=== PATIENT | female | born 1950 | race Caucasian/White ===

== ENCOUNTER 2021-05-17 21:22 | Inpatient (IN) | payer MEDICARE, BC ==
[~2021-05-17] VITALS: Ht 172.7 cm; Wt 63.5 kg
--- NOTE | 2021-05-17 21:45 | NUR ---
GPS ADMISSION NOTE ADMITTED THIS 70 Y/O FEMALE PT DIRECT ADMIT FROM [facility] ED. ADMITTED TO GPS ON 5150 HOLD DTS AND SUICIDE ATTEMPT BY OVERDOSE. UPON [id number] ASSESSMENT, PT IS A/O X3, DISHEVELED, PARANOID, DEPRESSED, WITH FLAT AFFECT. PT IS EASILY AGITATED. AMBULATORY WITH STEADY GAIT. SKIN IS INTACT. PT DENIES SI/HI AT THIS TIME. BOTH MD AWARE AND NOTIFIED OF THE ADMISSION. BELONGINGS AND CONTRABAND WERE DONE. NURSING ASSESSMENT DONE. PT'S RIGHTS DISCUSSED BY RENEE PADRON. PROVIDED PT WITH HANDBOOK AND MEDICATIONS GUIDE. ENVIRONMENTAL SAFETY CHECK DONE. ENCOURAGED PT TO VERBALIZE ANY FEELINGS OF CONCERN TO STAFF. ORIENTED PT TO UNIT POLICY. NO ACUTE DISTRESS NOTED. VSS. PT DENIES ANY PAIN OR DISCOMFORT AT THIS TIME. BED IN LOWEST LOCKED POSITION, HOB ELEVATED, SIDE RAILS UP X2. CALL LIGHT AND TABLE WITHIN REACH. WILL MONITOR Q15 MINS FOR SAFETY AND BEHAVIOR.
[2021-05-17] MEDS ORDERED: BLOOD SUGAR DIAGNOSTIC 1 EACH STRIP IN ONE (22:00)
[2021-05-17] MEDS ORDERED: LORAZEPAM 0.5 MG TABLET PO PRN (22:00)
[2021-05-17] MEDS ORDERED: MAGNESIUM HYDROXIDE 30 ML UDC PO PRN (22:00)
[2021-05-17] MEDS ORDERED: ACETAMINOPHEN 325 MG TABLET PO PRN (22:00)
[2021-05-17] MEDS ORDERED: BENA5TAB5 PO (22:26)
[2021-05-17] MEDS ORDERED: HYDR-3972 PO (22:26)
[2021-05-17] MEDS ORDERED: ALBU18HF2 IH (22:26)
[2021-05-17] MEDS ORDERED: BUPR150T10 PO (22:26)
[2021-05-17] MEDS ORDERED: VENL75TA4 PO (22:26)
[2021-05-17] MEDS ORDERED: AMLO-212 PO (22:26)
[2021-05-17] MEDS ORDERED: BUDE10.2 IH (22:26)
[2021-05-17] MEDS ORDERED: FLUT1BLS13 IH (22:26)
[2021-05-17] MEDS ORDERED: FLUT1DIS3 IH (22:26)
--- NOTE | 2021-05-17 22:42 | NUR ---
RN NOTE PT REFUSED ACCUCHECK AT THIS TIME. EDUCATED PT ON RISKS AND BENEFITS OF REFUSING ACCUCHEK. PT VERBALIZED UNDERSTANDING. WILL CONTINUE TO MONITOR PT CLOSELY.
--- NOTE | 2021-05-17 23:13 | NUR ---
RN NOTE: ANXIETY/AGITATION PT C/O FEELING ANXIOUS AND APPEARED AGITATED. PER PT REQUEST, ADMINISTERED ATIVAN 1MG PO PRN PER ORDER. WILL CONTINUE TO MONITOR PT CLOSELY.
[2021-05-17] MEDS: LORAZEPAM 1 MG TABLET PO PRN (23:25)
[2021-05-18 03:00] VITALS: BP 137/78
[2021-05-18 06:37] LABS: BASOPHILS # (AUTO) 0.1 K/uL (0.0-0.2); EOSINOPHILS % (AUTO) 2.5 % (0.0-6.0); HEMATOCRIT 44 % (33-45); HEMOGLOBIN 14.8 g/dL (11.5-14.8); LYMPHOCYTES # (AUTO) 1.6 K/uL (0.8-4.8); LYMPHOCYTES % (AUTO) 14.8 % (20.0-44.0); MEAN CORPUSCULAR HGB CONC 34 g/dl (31.0-36.0); MEAN CORPUSCULAR VOLUME 92 fL (82-100); MONOCYTES % (AUTO) 9.3 % (2.0-12.0); NEUTROPHILS # (AUTO) 7.6 K/uL (1.8-8.9); NEUTROPHILS % (AUTO) 72.4 % (43.0-81.0); PLATELET COUNT (AUTO) 398 K/uL (150-450); RED BLOOD CELL COUNT(AUTO) 4.78 MIL/uL (4.0-5.2); WHITE BLOOD COUNT (AUTO) 10.5 K/uL (4.3-11.0)
--- NOTE | 2021-05-18 07:24 | NUR ---
RN NOTES: PT. REFUSED MRSA SWAB , ENCOURAGED X3 RISKS AND BENFITS EXPLINED , PT. STILL REFUSED, WILL CONTINUE WITH PLAN OF CARE , AND PT REFUSED FLU VACCINE AN PNUMOCCOAL VACCINE , ENCOURAGED X3 STRONGLY REFUSED.
[2021-05-18 08:00] VITALS: BP 146/98
[2021-05-18] MEDS: LORAZEPAM 1 MG TABLET PO PRN ×2 (08:15→17:58)
[2021-05-18] MEDS: NICOTINE PATCH (14MG) 14 MG PATCH.TD24 TD SCH (08:28)
--- NOTE | 2021-05-18 08:28 | NUR ---
GPS/RN PT REFUSED NICOTINE PATCH OFFERED X3.
[2021-05-18 09:28] LABS: ALBUMIN 3.7 g/dL (3.4-5.0); BILIRUBIN,TOTAL 1.1 mg/dL (0.2-1.0); CALCIUM, SERUM 8.5 mg/dL (8.5-10.1); CREATININE 0.7 mg/dL (0.6-1.3); POTASSIUM 3.7 mmol/L (3.5-5.1); TOTAL PROTEIN, SERUM 7.2 g/dL (6.4-8.2)
[2021-05-18] MEDS ORDERED: ALBUTEROL FS 2.5 MG/3 ML VIAL.NEB NEB PRN (10:00)
[2021-05-18] MEDS: BUPROPION XL 150 MG TAB.ER.24 PO SCH (13:32)
[2021-05-18] MEDS: ARIPIPRAZOLE 2 MG TABLET PO SCH (13:32)
[2021-05-18] MEDS: GABAPENTIN 100 MG CAPSULE PO SCH ×2 (13:32→17:55)
[2021-05-18] MEDS: THIAMINE HCL 100 MG TABLET PO SCH (13:32)
[2021-05-18 16:00] VITALS: BP 136/82
[2021-05-18] MEDS ORDERED: FLUTICASONE/SALMETEROL 1 DISK IH SCH (17:00)
[2021-05-18] MEDS ORDERED: Medication Not On Formulary EA (Budesonide/Formoterol Fumarate (Symbicort 160-4.5 Mcg In IH SCH (17:00)
[2021-05-18] MEDS: MAG HYDROX/AL HYDROX/SIMETH 30 ML UDC PO PRN (19:44)
[2021-05-18 19:46] VITALS: BP 147/92
--- NOTE | 2021-05-18 19:46 | NUR ---
RN NOTE: INDIGESTION PATIENT C/O INDIGESTION/UPSET STOMACH & REQUESTED TO TAKE MEDICINE. PRN MAALOX 30 ML PRN ADMINISTERED. WILL CONTINUE TO MONITOR.
[2021-05-18 20:15] VITALS: BP 147/92
[2021-05-18] MEDS: ZOLPIDEM TARTRATE 5 MG TABLET PO PRN (21:04)
--- NOTE | 2021-05-18 21:06 | NUR ---
RN NOTE: INSOMNIA PATIENT C/O INABILITY TO SLEEP AND REQUESTED TO TAKE SLEEPING MEDICINE. PRN AMBIEN 5 MG 1 TAB PO ADMINISTERED. WILL CONTINUE TO MONITOR.
[2021-05-19] MEDS: LORAZEPAM 1 MG TABLET PO PRN ×2 (03:24→21:43)
--- NOTE | 2021-05-19 03:25 | NUR ---
RN NOTE: ANXIETY/AGITATION PT C/O FEELING ANXIOUS AND APPEARED AGITATED. PER PT REQUEST, ADMINISTERED ATIVAN 1MG PO PRN PER ORDER. WILL CONTINUE TO MONITOR PT CLOSELY.
--- NOTE | 2021-05-19 06:22 | NUR ---
RN NOTE: REFUSED MRSA PATIENT REFUSED MRSA X 3 DESPITE OF RISKS & BENEFITS EXPLANATIONS.
[2021-05-19 08:00] VITALS: BP 148/87
[2021-05-19] MEDS: BUPROPION XL 150 MG TAB.ER.24 PO SCH (08:11)
[2021-05-19] MEDS: ARIPIPRAZOLE 2 MG TABLET PO SCH (08:11)
[2021-05-19] MEDS: GABAPENTIN 100 MG CAPSULE PO SCH ×3 (08:12→16:22)
[2021-05-19] MEDS: THIAMINE HCL 100 MG TABLET PO SCH (08:12)
[2021-05-19] MEDS: MULTIPLE VIT (LYCOPENE/FA/MV,CA,IRON,MIN/LUT)1 TAB PO SCH (08:13)
[2021-05-19] MEDS: BENAZEPRIL HCL 5 MG TABLET PO SCH (08:13)
[2021-05-19] MEDS: FLUTICASONE/VILANTEROL 1 EACH BLST.W.DEV IH SCH (08:14)
[2021-05-19] MEDS: AMLODIPINE BESYLATE 5 MG TABLET PO SCH (08:15)
[2021-05-19] MEDS: NICOTINE PATCH (14MG) 14 MG PATCH.TD24 TD SCH (08:16)
[2021-05-19] MEDS: MAG HYDROX/AL HYDROX/SIMETH 30 ML UDC PO PRN (13:17)
[2021-05-19 16:00] VITALS: BP 129/69
[2021-05-19 19:39] VITALS: BP 154/90
[2021-05-19] MEDS: ZOLPIDEM TARTRATE 5 MG TABLET PO PRN (20:36)
--- NOTE | 2021-05-19 20:37 | NUR ---
Pt c/o insomnia. Least restrictive measures ineffective. Ambien 5 mg po prn given as ordered. Will continue to monitor.
--- NOTE | 2021-05-19 21:42 | NUR ---
Post 1 hr Ambien ineffective. Pt awake and c/o anxiety. Least restrictive measures ineffective. Ativan 1 mg po prn given as ordered. Will continue to monitor.
--- NOTE | 2021-05-19 22:45 | NUR ---
Post 1 hr Ativan effective. Pt asleep in bed easy to arouse. Frequent visual check done for safety. Will continue to monitor.
[2021-05-20] MEDS: HYDROCODONE/APAP 5/325MG TABLET PO PRN ×3 (00:29→19:54)
--- NOTE | 2021-05-20 00:34 | NUR ---
Pt woke up and c/o of lower back pain 02/23. [place] 5-325 mg po prn given as ordered. Will continue to monitor.
--- NOTE | 2021-05-20 01:33 | NUR ---
Post 1 hr [place] effective. [place] 0/10. Frequent visual check done for safety. Will continue to monitor.
--- NOTE | 2021-05-20 06:47 | NUR ---
Pt c/o lower back pain 02/23. [place] 5-325 mg po prn given as ordered. Will continue to monitor. Will endorse to next shift
[2021-05-20 08:00] VITALS: BP 135/75
[2021-05-20] MEDS: BENAZEPRIL HCL 5 MG TABLET PO SCH (08:40)
[2021-05-20] MEDS: GABAPENTIN 100 MG CAPSULE PO SCH ×3 (08:40→16:26)
[2021-05-20] MEDS: MULTIPLE VIT (LYCOPENE/FA/MV,CA,IRON,MIN/LUT)1 TAB PO SCH (08:40)
[2021-05-20] MEDS: AMLODIPINE BESYLATE 5 MG TABLET PO SCH (08:40)
[2021-05-20] MEDS: ARIPIPRAZOLE 2 MG TABLET PO SCH (08:40)
[2021-05-20] MEDS: THIAMINE HCL 100 MG TABLET PO SCH (08:41)
[2021-05-20] MEDS: BUPROPION XL 150 MG TAB.ER.24 PO SCH (08:41)
[2021-05-20] MEDS: FLUTICASONE/VILANTEROL 1 EACH BLST.W.DEV IH SCH (08:46)
[2021-05-20] MEDS: NICOTINE PATCH (14MG) 14 MG PATCH.TD24 TD SCH (08:47)
--- NOTE | 2021-05-20 08:47 | NUR ---
PT REFUSED NICOTINE PATCH STATING NOT NEEDING IT. PT STATED GETTING BREO ELLIPTA INHALER EARLIER NOCS, AND WILL CALL IF NEEDED.
--- NOTE | 2021-05-20 10:49 | NUR ---
FERNANDO Initial Discharge Plan: Patient currently resides at home alone located at [address] [place] [address]; ([phone]). Patient would want to return back home upon disharge.
--- NOTE | 2021-05-20 10:55 | NUR ---
Social Work Note/Substance Abuse Intervention: Patient was provided with a brief substance abuse intervention and referred to [facility] ([phone]), [facility] ([phone]), and [facility] ([phone]) for drinking alcohol everyday.
--- NOTE | 2021-05-20 12:23 | NUR ---
FERNANDO Family Contact: FERNANDO spoke with patient's son Rahul ([phone]) and discussed discharge and treatment plan. Son stated that he was living with pt last year from January-June 2020 but moved out. Son expressed that occasionally he visits pt to help out and so does his father. FERNANDO educated son on [id number] FERNANDO expressed that this specification writer will give the appropriate resources upon discharge.
--- NOTE | 2021-05-20 13:08 | NUR ---
SW Family Contact: SW spoke with patient's son Rahul ([phone]) who stated main point of contact will be patient's Vladimir ([phone]).
--- NOTE | 2021-05-20 13:08 | NUR ---
FERNANDO Family Contact: FERNANDO spoke with patient's Vladimir ([phone]) and discussed treatment/discharge plan. FERNANDO educated Vladimir on pt's status and [id number].
[2021-05-20] MEDS: LORAZEPAM 1 MG TABLET PO PRN (15:44)
--- NOTE | 2021-05-20 15:45 | NUR ---
PT STATED FEELING ANXIOUS. ATIVAN 1MG GIVEN FOR ANXIETY. WILL CONTINUE TO MONITOR.
[2021-05-20 16:00] VITALS: BP 139/94
[2021-05-20 20:00] VITALS: BP 139/78
[2021-05-21 08:00] VITALS: BP 156/99
[2021-05-21] MEDS: FLUTICASONE/VILANTEROL 1 EACH BLST.W.DEV IH SCH (08:34)
[2021-05-21] MEDS: ARIPIPRAZOLE 2 MG TABLET PO SCH (08:34)
[2021-05-21] MEDS: BUPROPION XL 150 MG TAB.ER.24 PO SCH (08:35)
[2021-05-21] MEDS: MULTIPLE VIT (LYCOPENE/FA/MV,CA,IRON,MIN/LUT)1 TAB PO SCH (08:35)
[2021-05-21] MEDS: BENAZEPRIL HCL 5 MG TABLET PO SCH (08:35)
[2021-05-21] MEDS: THIAMINE HCL 100 MG TABLET PO SCH (08:35)
[2021-05-21] MEDS: GABAPENTIN 100 MG CAPSULE PO SCH ×3 (08:35→17:01)
[2021-05-21] MEDS: NICOTINE PATCH (14MG) 14 MG PATCH.TD24 TD SCH (08:36)
[2021-05-21] MEDS: AMLODIPINE BESYLATE 5 MG TABLET PO SCH (08:36)
[2021-05-21] MEDS: LORAZEPAM 1 MG TABLET PO PRN ×2 (12:11→23:18)
--- NOTE | 2021-05-21 12:11 | NUR ---
PT FEELS ANXIOUS. REQUESTED ATIVAN. ATIVAN 1MG GIVEN. WILL CONTINUE TO MONITOR.
--- NOTE | 2021-05-21 14:25 | NUR ---
SW Family Contact: SW spoke with patient's Vladimir ([phone]) and discussed patient's status.
[2021-05-21 16:00] VITALS: BP 148/81
[2021-05-21] MEDS: MAG HYDROX/AL HYDROX/SIMETH 30 ML UDC PO PRN (18:38)
--- NOTE | 2021-05-21 18:38 | NUR ---
PT COMPLAINS OF INDIGESTION. MAALOX GIVEN. WILL CONTINUE TO MONITOR.
[2021-05-21 20:00] VITALS: BP 158/74
[2021-05-21] MEDS: ZOLPIDEM TARTRATE 5 MG TABLET PO PRN (21:45)
--- NOTE | 2021-05-21 21:46 | NUR ---
GPS RN NOTES: Patient requested for sleep medication. Ambien 5mg given PO at 2145. Will continue to monitor.
--- NOTE | 2021-05-21 23:20 | NUR ---
GPS RN NOTES: PATIENT IS ANXIOUS, RESTLESS. ATIVAN 1MG GIVEN PO AT 2318. WILL CONTINUE TO MONITOR.
[2021-05-22] MEDS: HYDROCODONE/APAP 5/325MG TABLET PO PRN ×2 (02:49→20:02)
--- NOTE | 2021-05-22 02:52 | NUR ---
GPS RN NOTES: PATIENT REQUESTED FOR PAIN MEDICATION FOR LOWER BACK PAIN. NORCO 5/325MG 1TAB GIVEN PO PRN AT 0249. WILL CONTINUE TO MONITOR.
[2021-05-22 08:00] VITALS: BP 143/72
[2021-05-22] MEDS: FLUTICASONE/VILANTEROL 1 EACH BLST.W.DEV IH SCH (09:13)
[2021-05-22] MEDS: MULTIPLE VIT (LYCOPENE/FA/MV,CA,IRON,MIN/LUT)1 TAB PO SCH (09:14)
[2021-05-22] MEDS: ARIPIPRAZOLE 2 MG TABLET PO SCH (09:14)
[2021-05-22] MEDS: GABAPENTIN 100 MG CAPSULE PO SCH ×3 (09:14→16:16)
[2021-05-22] MEDS: BUPROPION XL 150 MG TAB.ER.24 PO SCH (09:14)
[2021-05-22] MEDS: THIAMINE HCL 100 MG TABLET PO SCH (09:14)
[2021-05-22] MEDS: NICOTINE PATCH (14MG) 14 MG PATCH.TD24 TD SCH (09:14)
[2021-05-22] MEDS: BENAZEPRIL HCL 5 MG TABLET PO SCH (09:14)
[2021-05-22] MEDS: AMLODIPINE BESYLATE 5 MG TABLET PO SCH (09:15)
[2021-05-22] MEDS: LORAZEPAM 1 MG TABLET PO PRN ×3 (09:21→23:05)
--- NOTE | 2021-05-22 09:56 | NUR ---
FERNANDO Coordination of Care: Patient referred for intake evaluation (psychiatry) at [facility] located at [address] [place] [address]; ([phone]) on May 29 at 1:30PM via telehealth. Coordinated by officer of the day.
--- NOTE | 2021-05-22 10:05 | NUR ---
FERNANDO Coordination of Care: Patient will follow-up with (Valve Inserter) Dr. Varner located at [address] [place] [address] [address], [place] [address]; ([phone]) on May 30 at 3:20PM. Scheduled by customer service receptionist Ai.
--- NOTE | 2021-05-22 15:16 | NUR ---
Court Hearing: Patient's court hearing was today for 5250 is upheld for danger to self.
--- NOTE | 2021-05-22 15:22 | NUR ---
SW Family Contact: SW spoke with patient's Vladimir ([phone]) and notified of pt's court hearing and that the supreme court judge upheld her 5250 for danger to self.
[2021-05-22 16:00] VITALS: BP 144/73
--- NOTE | 2021-05-22 16:17 | NUR ---
RNNorbertoCO: ATIVAN PO GIVEN FOR C/O ANXIETY.
[2021-05-22 20:00] VITALS: BP 142/57
--- NOTE | 2021-05-22 20:02 | NUR ---
Pt c/o lower back pain 03/26. [place] 5-325 mg po prn given as ordered. Will continue to monitor.
--- NOTE | 2021-05-22 21:16 | NUR ---
Post 1 hr [place] effective. Pt asleep in bed easy to arouse. [place] 0/10. Frequent visual check done for safety. Will continue to monitor.
[2021-05-22] MEDS: ZOLPIDEM TARTRATE 5 MG TABLET PO PRN (21:42)
--- NOTE | 2021-05-22 21:43 | NUR ---
Pt c/o insomnia. Least restrictive measures ineffective. Ambien 5 mg 1 tab po prn given as ordered. Will continue to monitor.
--- NOTE | 2021-05-22 23:05 | NUR ---
Post 1 hr Ambien ineffective. Pt awake lying in bed and c/o anxiety. Ativan 1 mg po prn given as ordered. Will continue to monitor.
[2021-05-23] MEDS: HYDROCODONE/APAP 5/325MG TABLET PO PRN ×3 (03:47→21:14)
--- NOTE | 2021-05-23 03:47 | NUR ---
Pt woke up and c/o lower back pain 03/26. [place] 5-325 mg po prn given as ordered. Will continue to monitor.
--- NOTE | 2021-05-23 04:50 | NUR ---
Post 1 hr [place] effective. Pt asleep in bed easy to arouse. [place] 0/10. Will continue to monitor.
[2021-05-23 08:00] VITALS: BP 142/84
[2021-05-23] MEDS: FLUTICASONE/VILANTEROL 1 EACH BLST.W.DEV IH SCH (08:44)
[2021-05-23] MEDS: NICOTINE PATCH (14MG) 14 MG PATCH.TD24 TD SCH ×2 (08:45→08:56)
[2021-05-23] MEDS: AMLODIPINE BESYLATE 5 MG TABLET PO SCH (08:46)
[2021-05-23] MEDS: MULTIPLE VIT (LYCOPENE/FA/MV,CA,IRON,MIN/LUT)1 TAB PO SCH (08:46)
[2021-05-23] MEDS: BENAZEPRIL HCL 5 MG TABLET PO SCH (08:46)
[2021-05-23] MEDS: ARIPIPRAZOLE 2 MG TABLET PO SCH (08:46)
[2021-05-23] MEDS: GABAPENTIN 100 MG CAPSULE PO SCH ×3 (08:46→16:34)
[2021-05-23] MEDS: THIAMINE HCL 100 MG TABLET PO SCH (08:46)
[2021-05-23] MEDS: BUPROPION XL 150 MG TAB.ER.24 PO SCH (08:47)
[2021-05-23] MEDS: LORAZEPAM 1 MG TABLET PO PRN (14:08)
[2021-05-23 16:00] VITALS: BP 125/72
[2021-05-23 20:00] VITALS: BP 154/74
[2021-05-23] MEDS: ZOLPIDEM TARTRATE 5 MG TABLET PO PRN (21:14)
[2021-05-24] MEDS: LORAZEPAM 1 MG TABLET PO PRN ×4 (01:07→23:31)
--- NOTE | 2021-05-24 01:07 | NUR ---
GPS RN NOTE, PATIENT HAS A COMPLAINT OF FEELING ANXIOUS AND IS REQUESTING ATIVAN AT THIS TIME. PATIENT VITAL SIGNS ARE STABLE. GAVE ATIVAN 1MG PO Q6HR PRN ORDERED. WILL REASSESS FOR ANXIETY AND I WILL CONTINUE TO MONITOR THIS PATIENT WITH THE HELP OF STAFF.
[2021-05-24] MEDS: HYDROCODONE/APAP 5/325MG TABLET PO PRN (05:10)
[2021-05-24 08:00] VITALS: BP 158/80
--- NOTE | 2021-05-24 08:21 | NUR ---
Thursday EARLY DISCHARGE ENTRY: Patient currently resides at home alone located at [address] [place] [address]; ([phone]). Patients son Vladimir ([phone]) will apple picking supervisor pt at 12-1PM. Patients Vladimir is aware and agreeable of discharge. Upon discharge, pt appears to be happy to be going back home. Patient is alert and oriented x4. Patient denies suicidal or homicidal ideation. Patient denies visual/auditory hallucinations. Patient will follow-up with (Statistical Clerk Advertising) Dr. Varner located at [address] [facility] [address], [place] [address]; ([phone]) on May 30 at 3:20PM. Patient referred for intake evaluation (psychiatry) at [facility] located at [address] [place] [address]; ([phone]) on May 29 at 1:30PM via telehealth. Patient was provided with a brief substance abuse intervention and referred to [facility] ([phone]), [facility] ([phone]), and [facility] ([phone]) for drinking alcohol. Patient presents with euthymic mood and congruent affect.
[2021-05-24] MEDS: FLUTICASONE/VILANTEROL 1 EACH BLST.W.DEV IH SCH (08:40)
[2021-05-24] MEDS: MULTIPLE VIT (LYCOPENE/FA/MV,CA,IRON,MIN/LUT)1 TAB PO SCH (08:41)
[2021-05-24] MEDS: GABAPENTIN 100 MG CAPSULE PO SCH ×3 (08:41→16:29)
[2021-05-24] MEDS: ARIPIPRAZOLE 2 MG TABLET PO SCH (08:41)
[2021-05-24] MEDS: THIAMINE HCL 100 MG TABLET PO SCH (08:42)
[2021-05-24] MEDS: BENAZEPRIL HCL 5 MG TABLET PO SCH (08:42)
[2021-05-24] MEDS: BUPROPION XL 150 MG TAB.ER.24 PO SCH (08:42)
[2021-05-24] MEDS: AMLODIPINE BESYLATE 5 MG TABLET PO SCH (08:43)
[2021-05-24] MEDS: NICOTINE PATCH (14MG) 14 MG PATCH.TD24 TD SCH (08:47)
--- NOTE | 2021-05-24 11:17 | NUR ---
SW Referrals: SW provided referrals for pt for psychiatrists in pts area: [facility] 1)[facility] - [address], [place] [address]; 2)[facility] [address] [address]; 3)Homero Anguiano DO [address] [place] [address];
[2021-05-24 16:00] VITALS: BP 133/87
--- NOTE | 2021-05-24 19:30 | NUR ---
GPS RN NOTE, RECEIVED PATIENT AWAKE AND IN BED, NO S/S OR COMPLAINTS OF PAIN AT THIS TIME. PATIENT IS DISPLAYING NO S/S OF APPARENT DISTRESS AT THIS TIME. PATIENT BREATHING IS UNLABORED WITH EQUAL RISE AND FALL OF THE CHEST. PATIENT IS ALERT AND ORIENTED X 3 ON ROOM AIR WITH A SPO2 97%. PATIENT IS COMPLIANT WITH MEDICATIONS, ANXIOUS AT TIMES, AND COOPERATIVE. PATIENT DENIES SUICIDAL AND HOMICIDAL IDEATIONS AT THIS TIME. PATIENT ASSISTED WITH TURNING AND REPOSITIONING Q2HR AND PRN FOR COMFORT AND CIRCULATION. PATIENT HAS NO NEEDS AT THIS TIME. PATIENT EDUCATED ON THE USE OF THE CALL LEROY. PATIENT BED SIDE RAILS UP X 2 FOR SAFETY. PATIENT BED IS LOCKED, LOW, WITH BED ALARM ON. WILL CONTINUE TO MONITOR THIS PATIENT Q15 MINUTES WITH THE HELP OF STAFF TO MAINTAIN SAFETY.
[2021-05-24 20:00] VITALS: BP 131/86
[2021-05-24] MEDS: ZOLPIDEM TARTRATE 5 MG TABLET PO PRN (21:55)
--- NOTE | 2021-05-24 21:55 | NUR ---
GPS RN NOTE, PATIENT HAS A COMPLAINT OF NOT BEING ABLE TO SLEEP AND IS REQUESTING AMBIEN AT THIS TIME. PATIENT VITAL SIGNS ARE STABLE. GAVE AMBIEN 5MG PO Q HS PRN ORDERED. WILL REASSESS FOR INSOMNIA AND I WILL CONTINUE TO MONITOR THIS PATIENT WITH THE HELP OF STAFF.
--- NOTE | 2021-05-24 23:31 | NUR ---
GPS RN NOTE, PATIENT HAS A COMPLAINT OF FEELING ANXIOUS AND IS REQUESTING ATIVAN AT THIS TIME. PATIENT VITAL SIGNS ARE STABLE. GAVE ATIVAN 1 MG PO Q6HR PRN ORDERED. WILL REASSESS FOR ANXIETY AND I WILL CONTINUE TO MONITOR THIS PATIENT WITH THE HELP OF STAFF.
[2021-05-25] MEDS: HYDROCODONE/APAP 5/325MG TABLET PO PRN ×2 (03:14→09:12)
--- NOTE | 2021-05-25 03:16 | NUR ---
GPS RN NOTE, PATIENT HAS A COMPLAINT OF BACK PAIN AT 7 OUT OF 10 ON THE PAIN SCALE AND IS REQUESTING NORCO AT THIS TIME. PATIENT VITAL SIGNS ARE STABLE. GAVE NORCO 5-325 1 TAB Q6HR PRN ORDERED. WILL REASSESS PAIN AND I WILL CONTINUE TO MONITOR THIS PATIENT
[2021-05-25] MEDS: LORAZEPAM 1 MG TABLET PO PRN ×2 (06:02→12:30)
--- NOTE | 2021-05-25 07:30 | NUR ---
RECEIVED PT. IN RM.VS STABLE.NO ACUTE DISTRESS.MED COMPLIANT.WALKING ABOUT UNIT.
[2021-05-25 08:00] VITALS: BP 150/77
[2021-05-25] MEDS: NICOTINE PATCH (14MG) 14 MG PATCH.TD24 TD SCH (09:00)
[2021-05-25] MEDS: ARIPIPRAZOLE 2 MG TABLET PO SCH (09:11)
[2021-05-25] MEDS: THIAMINE HCL 100 MG TABLET PO SCH (09:11)
[2021-05-25] MEDS: BUPROPION XL 150 MG TAB.ER.24 PO SCH (09:11)
[2021-05-25] MEDS: MULTIPLE VIT (LYCOPENE/FA/MV,CA,IRON,MIN/LUT)1 TAB PO SCH (09:12)
[2021-05-25 09:13] VITALS: BP 150/77
[2021-05-25] MEDS: AMLODIPINE BESYLATE 5 MG TABLET PO SCH (09:13)
[2021-05-25] MEDS: BENAZEPRIL HCL 5 MG TABLET PO SCH (09:13)
[2021-05-25] MEDS: GABAPENTIN 100 MG CAPSULE PO SCH ×2 (09:13→12:31)
[2021-05-25] MEDS: FLUTICASONE/VILANTEROL 1 EACH BLST.W.DEV IH SCH (09:16)
--- NOTE | 2021-05-25 11:30 | NUR ---
RECEIVED RX FOR NON PSYCHOTROPIC MEDS.CALLED IN TO PT'S PHARM.AFTER RECEIVING PHARM. # FROM SPOUSE.PT. MADE AWARE.[facility] [place] AFTER 230 PM.
--- NOTE | 2021-05-25 13:08 | NUR ---
JUST GIVEN ATIVAN 1 MG. PO,STATES WOULD LIKE BEFORE BEING PICKED UP BY EX-.
--- NOTE | 2021-05-25 13:30 | NUR ---
ALL SIGNATURES OBTAINED FROM PT. AND SPOUSE,INCLUDING BELONGING SHEET.PT. AWARE OF ALL MEDS ORDERED.PT.DENIES S/I,H/I AND AUDITORY HALLUCINATIONS.HAS ALL BELONGINGS.ESCORTED TO LOBBY VIA W/C ACCOMPANIED BY AUTOMOBILE MECHANIC RADIATOR AND SPOUSE.
== END 2021-05-25 13:30 | disposition home or self-care (01) | DRG 885 ==
LOC: GPS 21:22
PROVIDERS: ADMIT Psychiatry & Neurology Psychiatry; ATTEND Nurse Practitioner Acute Care
DX: F33.2 Major depressive disorder, recurrent severe without psychotic features (principal); R45.851 Suicidal ideations; J44.9 Chronic obstructive pulmonary disease, unspecified; F10.10 Alcohol abuse, uncomplicated; Y90.9 Presence of alcohol in blood, level not specified; F41.9 Anxiety disorder, unspecified; F29 Unspecified psychosis not due to a substance or known physiological condition; I10 Essential (primary) hypertension; R53.1 Weakness; Z91.81 History of falling; R27.8 Other lack of coordination; Z79.899 Other long term (current) drug therapy; Z87.891 Personal history of nicotine dependence
CPT/HCPCS: 36415; 80053-TC; 80061-TC; 85025-TC; 97116-TC; 97530-TC